=== PATIENT | male | born 1960 | race Hispanic/Latino ===

== ENCOUNTER 2017-06-11 19:09 | Emergency (ER) | payer BC, OTHER ==
[2017-06-11] MEDS ORDERED: HYDRALAZINE HCL 20 MG/ML VIAL ONE (19:30)
[2017-06-11] MEDS ORDERED: ACETAMINOPHEN-CODEINE ELIXIR 5 ML UDCUP ONE (19:31)
[2017-06-11 19:55] LABS: BASOPHILS % (AUTO) 0.7 % (0.0-5.0); EOSINOPHILS % (AUTO) 0.8 % (0.0-8.0); HEMATOCRIT 42.2 % (42-54); LYMPHOCYTES % (AUTO) 28.6 % (21.0-51.0); MEAN CORPUSCULAR HEMOGLOBIN 30.1 pg (27.0-33.0); MEAN CORPUSCULAR VOLUME 83.5 fL (79-99); MONOCYTES % (AUTO) 6.6 % (3.0-13.0); NEUTROPHILS % (AUTO) 63.3 % (40.0-77.0); PLATELET COUNT (AUTO) 183 K/uL (130-400); RED BLOOD CELL COUNT(AUTO) 5.05 MIL/uL (4.50-6.20); RED CELL DISTRIBUTION WIDTH 13.7 % (11.0-15.5); WHITE BLOOD COUNT (AUTO) 7.5 K/uL (4.8-10.8)
[2017-06-11 20:04] LABS: CREATININE 0.9 mg/dL (0.5-1.5); POTASSIUM 3.6 mmol/L (3.5-5.1)
[2017-06-11 20:09] LABS: ALBUMIN 3.3 g/dL (3.5-5.0); BILIRUBIN,TOTAL 0.4 mg/dL (0.2-1.0); TOTAL PROTEIN, SERUM 7.8 g/dL (6.0-8.3)
[2017-06-11] MEDS ORDERED: DEXAMETHASONE SOD PHOSPHATE 10MG/ML 1ML VIAL ONE (21:57)
== END 2017-06-11 23:13 | disposition home or self-care (01) ==
LOC: EDH 19:09
DX: R42 Dizziness and giddiness (principal); R51 Headache; I10 Essential (primary) hypertension; J32.9 Chronic sinusitis, unspecified; E11.9 Type 2 diabetes mellitus without complications; Z87.442 Personal history of urinary calculi; Z98.890 Other specified postprocedural states
CPT/HCPCS: 36415; 70450; 80053; 84484; 85025; 87804 ×2; 93005; 96372; 96374; 99285; J0360; J1100

== ENCOUNTER 2021-08-27 06:38 | Inpatient (IN) | payer SELFPAY ==
[~2021-08-27] VITALS: Ht 167.6 cm; Wt 99.8 kg
[2021-08-27 07:27] LABS: HEMATOCRIT 42.9 % (42-54); MEAN CORPUSCULAR HEMOGLOBIN 28.3 pg (27.0-33.0); MEAN CORPUSCULAR VOLUME 83.1 fL (79-99); PLATELET COUNT (AUTO) 173 K/uL (130-400); RED BLOOD CELL COUNT(AUTO) 5.16 MIL/uL (4.50-6.20); RED CELL DISTRIBUTION WIDTH 13.8 % (11.0-15.5); WHITE BLOOD COUNT (AUTO) 6.9 K/uL (4.8-10.8)
[2021-08-27 07:29] LABS: APPEARANCE,URINE Cloudy (CLEAR); BILIRUBIN,URINE Negative (NEGATIVE); COLOR,URINE Dark Yellow (YELLOW); GLUCOSE, URINE (UA) 250 mg/dL (NEGATIVE); KETONES,URINE Trace mg/dL (NEGATIVE); LEUKOCYTE ESTERASE ,URINE Negative (NEGATIVE); NITRATE,URINE Negative (NEGATIVE); OCCULT BLOOD,URINE Negative (NEGATIVE); PH,URINE 5.5 (5.0-8.0); PROTEIN,URINE POS 1+ mg/dL (NEGATIVE)
[2021-08-27 07:33] LABS: AMPHET/METH SCREEN,URINE NEGATIVE (NEGATIVE); BARBITURATE SCREEN, URINE NEGATIVE (NEGATIVE); BENZODIAZEPINES SCREEN,URINE NEGATIVE (NEGATIVE); CANNABINOID SCREEN,URINE NEGATIVE (NEGATIVE); COCAINE SCREEN,URINE NEGATIVE (NEGATIVE); OPIATE SCREEN,URINE NEGATIVE (NEGATIVE); PHENCYCLIDINE SCREEN,URINE NEGATIVE (NEGATIVE)
[2021-08-27 07:41] LABS: ALBUMIN 3.6 g/dL (3.5-5.0); BILIRUBIN,TOTAL 0.5 mg/dL (0.2-1.0); TOTAL PROTEIN, SERUM 8.2 g/dL (6.0-8.3)
[2021-08-27 07:42] LABS: BACTERIA,URINE Rare /HPF (None Seen); MUCUS,URINE Few LPF (None Seen); RBC,URINE 0-1 /HPF (0-1); SQUAMOUS EPITHELIAL CELL,UR Rare /HPF (0-2); WBC,URINE 0-1 /HPF (0-1)
[2021-08-27 07:54] LABS: LYMPHOCYTES % (MANUAL) 10 % (22-44); MAN.DIFF COMMENT-IMPRESSION MANUAL DIFFERENTIAL; MONOCYTES % (MANUAL) 4 % (2-9); PLATELET MORPHOLOGY COMMENT ADEQUATE; SEGMENTED NEUTROPHILS % 86 % (40-70)
[2021-08-27] MEDS ORDERED: MECLIZINE HCL 25 MG TABLET ONE (07:58)
[2021-08-27] MEDS ORDERED: ONDANSETRON 4MG INJ ONE (07:59)
[2021-08-27] MEDS ORDERED: 0.9%NACL 1000ML 1,000 ML IV ONE ×3 (08:00→12:00)
[2021-08-27] MEDS ORDERED: ONDANSETRON 4MG INJ IVP ONE (08:00)
[2021-08-27] MEDS ORDERED: MECLIZINE HCL 25 MG TABLET PO ONE (08:00)
[2021-08-27] MEDS ORDERED: GADOTERATE MEGLUMINE 10 MMOL/20 ML VIAL IV ONE (10:53)
[2021-08-27] MEDS ORDERED: SOLU-MEDROL 125MG VIAL IVP ONE (12:00)
[2021-08-27] MEDS ORDERED: DIAZEPAM 5 MG/ML 2 ML SYG IVP ONE (12:00)
[2021-08-27] MEDS ORDERED: LISI10TA24 PO (14:51)
[2021-08-27] MEDS ORDERED: METF-446 PO (14:51)
[2021-08-27] MEDS ORDERED: GLIP10TA9 PO (14:51)
[2021-08-27] MEDS ORDERED: ATOR10TA69 PO (14:51)
[2021-08-27] MEDS ORDERED: MECLIZINE HCL 25 MG TABLET PO PRN (16:00)
[2021-08-27] MEDS ORDERED: ACETAMINOPHEN WITH CODEINE 1 TAB TAB PO PRN (16:00)
[2021-08-27] MEDS ORDERED: DEXTROSE 50%-WATER 50 ML DISP.SYRIN IV PRN (16:00)
[2021-08-27] MEDS ORDERED: GLUCAGON 1MG KIT 1 MG ML IM PRN (16:00)
[2021-08-27] MEDS ORDERED: DIPHENHYDRAMINE HCL 25 MG CAPSULE PO PRN (16:00)
[2021-08-27] MEDS ORDERED: ACETAMINOPHEN 325 MG TAB PO PRN (16:00)
[2021-08-27] MEDS ORDERED: GUAIFENESIN-DM 200/20 MG 10 ML PO PRN (16:00)
[2021-08-27] MEDS ORDERED: MAG/ALUM/SIMETH 30 ML UDCUP PO PRN (16:00)
[2021-08-27] MEDS ORDERED: ONDANSETRON 4MG INJ IV PRN (16:00)
[2021-08-27] MEDS ORDERED: NITROGLYCERIN 0.4 MG SL TAB SL PRN (16:00)
[2021-08-27] MEDS: INSULIN HUMULIN R 100 UNIT/ML 3ML SQ SCH ×2 (16:15→21:29)
[2021-08-27] MEDS: 0.9%NACL 1000ML 1,000 ML IV SCH (16:15)
[2021-08-27 16:19] LABS: HEMOGLOBIN A1C 8.5 % (4.0-6.0)
[2021-08-27] MEDS: FAMOTIDINE 20MG VIAL IV SCH (21:37)
[2021-08-27 23:30] VITALS: BP 140/90
[2021-08-28] MEDS: 0.9%NACL 1000ML 1,000 ML IV SCH ×3 (03:25→22:00)
[2021-08-28 04:00] VITALS: BP 141/77
[2021-08-28] MEDS: INSULIN HUMULIN R 100 UNIT/ML 3ML SQ SCH ×4 (07:05→21:00)
[2021-08-28 07:54] VITALS: BP 137/78
[2021-08-28] MEDS: FAMOTIDINE 20MG VIAL IV SCH ×2 (10:04→20:01)
[2021-08-28] MEDS: ENOXAPARIN SODIUM 40 MG/0.4 ML SYRINGE SQ SCH (10:05)
[2021-08-28 10:11] LABS: CREATININE 1.1 mg/dL (0.5-1.5); POTASSIUM 3.5 mmol/L (3.5-5.1)
[2021-08-28 12:00] VITALS: BP 136/75
[2021-08-28 16:00] VITALS: BP 145/75
[2021-08-28 20:00] VITALS: BP 134/76
[2021-08-29] VITALS: BP 144/86
[2021-08-29 04:00] VITALS: BP 131/85
[2021-08-29] MEDS: INSULIN HUMULIN R 100 UNIT/ML 3ML SQ SCH ×2 (06:18→11:30)
[2021-08-29 08:00] VITALS: BP 140/82
[2021-08-29] MEDS: FAMOTIDINE 20MG VIAL IV SCH (08:19)
[2021-08-29] MEDS: ENOXAPARIN SODIUM 40 MG/0.4 ML SYRINGE SQ SCH (08:19)
[2021-08-29] MEDS: 0.9%NACL 1000ML 1,000 ML IV SCH (08:20)
[2021-08-29 12:00] VITALS: BP_SYST 140; BP_SYST 149; BP_DIAS 82; BP_DIAS 88; BP_DIAS 92
[2021-08-29] MEDS ORDERED: AMOX-426 PO (13:15)
[2021-08-29] MEDS ORDERED: CETI10CA5 PO (13:15)
== END 2021-08-29 15:42 | disposition home or self-care (01) | DRG 392 ==
LOC: EDH 06:38 → EDHIP 15:53 → 3BH 23:33
PROVIDERS: ADMIT Internal Medicine; ATTEND Internal Medicine
DX: K52.9 Noninfective gastroenteritis and colitis, unspecified (principal); E86.0 Dehydration; I10 Essential (primary) hypertension; E11.9 Type 2 diabetes mellitus without complications; E78.5 Hyperlipidemia, unspecified; R26.89 Other abnormalities of gait and mobility
CPT/HCPCS: 36415; 70450; 70553; 80048; 80053; 80305; 81001; 82948; 83036; 84484; 85025; 87507; 93005; 93306; 93356; 93880; G0378; J1650; J1815; J2405; J2930; J3360; J3490; J7030

== ENCOUNTER 2021-09-30 18:13 | Emergency (ER) | payer OTHER, SELFPAY ==
[~2021-09-30] VITALS: Ht 170.2 cm; Wt 97.5 kg
[~2021-09-30 18:13] MED LIST: AMOX-426 PO; ATOR10TA69 PO; CETI10CA5 PO; GLIP10TA9 PO; LISI10TA24 PO; METF-446 PO
[2021-09-30 18:58] LABS: BASOPHILS % (AUTO) 0.2 % (0.0-5.0); EOSINOPHILS % (AUTO) 0.3 % (0.0-8.0); HEMATOCRIT 38.7 % (42-54); LYMPHOCYTES % (AUTO) 12.9 % (21.0-51.0); MEAN CORPUSCULAR HEMOGLOBIN 27.6 pg (27.0-33.0); MEAN CORPUSCULAR HGB CONC 32.6 g/dL (32.0-36.0); MEAN CORPUSCULAR VOLUME 84.9 fL (79-99); MONOCYTES % (AUTO) 6.4 % (3.0-13.0); NEUTROPHILS % (AUTO) 79.9 % (40.0-77.0); PLATELET COUNT (AUTO) 197 K/uL (130-400); RED BLOOD CELL COUNT(AUTO) 4.56 MIL/uL (4.50-6.20); WHITE BLOOD COUNT (AUTO) 12.3 K/uL (4.8-10.8)
[2021-09-30 19:11] LABS: CREATININE 1.1 mg/dL (0.5-1.5); POTASSIUM 4.4 mmol/L (3.5-5.1)
[2021-09-30 19:20] LABS: ALBUMIN 3.5 g/dL (3.5-5.0); BILIRUBIN,TOTAL 0.4 mg/dL (0.2-1.0); TOTAL PROTEIN, SERUM 7.6 g/dL (6.0-8.3)
[2021-09-30 19:48] LABS: APPEARANCE,URINE Clear (CLEAR); BILIRUBIN,URINE Negative (NEGATIVE); COLOR,URINE Yellow (YELLOW); GLUCOSE, URINE (UA) Negative (NEGATIVE); KETONES,URINE Trace mg/dL (NEGATIVE); LEUKOCYTE ESTERASE ,URINE Negative (NEGATIVE); NITRATE,URINE Negative (NEGATIVE); OCCULT BLOOD,URINE Negative (NEGATIVE); PROTEIN,URINE Negative (NEGATIVE)
[2021-09-30] MEDS ORDERED: KETOROLAC 15MG/ML VIAL (15MG/ML) IV ONE (20:00)
[2021-09-30] MEDS ORDERED: 0.9%NACL 1000ML 1,000 ML IV ONE (21:00)
[2021-09-30] MEDS ORDERED: IOHEXOL-350 75 ML VIAL IV ONE (21:11)
[2021-09-30] MEDS ORDERED: ACET-2079 PO (23:33)
[2021-10-01 00:30] VITALS: BP 118/68
== END 2021-10-01 00:32 | disposition home or self-care (01) ==
LOC: EDH 18:13
DX: R16.0 Hepatomegaly, not elsewhere classified (principal); R10.11 Right upper quadrant pain; E11.9 Type 2 diabetes mellitus without complications; I10 Essential (primary) hypertension; Z79.1 Long term (current) use of non-steroidal anti-inflammatories (NSAID); Z79.84 Long term (current) use of oral hypoglycemic drugs; Z79.899 Other long term (current) drug therapy
CPT/HCPCS: 36415; 74177; 76705; 80053; 81003; 82150; 83690; 84484; 85025; 93005; 96361; 96374; 99285; J1885; Q9967

== ENCOUNTER 2021-11-03 03:07 | Emergency (ER) | payer OTHER, SELFPAY ==
[~2021-11-03] VITALS: Ht 167.6 cm; Wt 99.8 kg
[~2021-11-03 03:07] MED LIST changes: +ACET-2079 PO
[2021-11-03] MEDS ORDERED: MORPHINE 4 MG SYG IM ONE (04:30)
[2021-11-03] MEDS ORDERED: DEXAMETHASONE SOD PHOSPHATE 4 MG/ML 1ML VIAL IM ONE (04:30)
[2021-11-03 04:58] LABS: BASOPHILS % (AUTO) 0.2 % (0.0-5.0); EOSINOPHILS % (AUTO) 0.2 % (0.0-8.0); HEMATOCRIT 39.6 % (42-54); LYMPHOCYTES % (AUTO) 28.5 % (21.0-51.0); MEAN CORPUSCULAR HGB CONC 33.3 g/dL (32.0-36.0); MEAN CORPUSCULAR VOLUME 84.1 fL (79-99); MONOCYTES % (AUTO) 10.1 % (3.0-13.0); NEUTROPHILS % (AUTO) 60.4 % (40.0-77.0); PLATELET COUNT (AUTO) 177 K/uL (130-400); RED BLOOD CELL COUNT(AUTO) 4.71 MIL/uL (4.50-6.20); RED CELL DISTRIBUTION WIDTH 13.5 % (11.0-15.5); WHITE BLOOD COUNT (AUTO) 5.2 K/uL (4.8-10.8)
[2021-11-03 05:05] LABS: CREATININE 0.9 mg/dL (0.5-1.5); POTASSIUM 4.2 mmol/L (3.5-5.1)
[2021-11-03 05:10] LABS: BILIRUBIN,TOTAL 0.3 mg/dL (0.2-1.0)
[2021-11-03] MEDS ORDERED: CEFTRIAXONE 1G VIAL ONE (05:41)
[2021-11-03] MEDS ORDERED: AZITHROMYCIN 250 MG TABLET PO ONE ×2 (05:41→06:00)
[2021-11-03] MEDS ORDERED: PRED20TA3 PO (05:47)
[2021-11-03] MEDS ORDERED: AZIT250T PO (05:47)
[2021-11-03] MEDS ORDERED: CEFTRIAXONE 1G VIAL IVP ONE (06:00)
[2021-11-03 06:02] VITALS: BP 134/77
== END 2021-11-03 06:09 | disposition home or self-care (01) ==
LOC: EDH 03:07
DX: U07.1 COVID-19 (principal); J12.82 Pneumonia due to coronavirus disease 2019; J06.9 Acute upper respiratory infection, unspecified; Z79.52 Long term (current) use of systemic steroids; Z79.84 Long term (current) use of oral hypoglycemic drugs; Z79.899 Other long term (current) drug therapy
CPT/HCPCS: 36415; 71045; 80053; 85025; 87635; 87804 ×2; 87880; 96372 ×2; 96374; 99284; C9803; J0696; J1100; J2270